=== PATIENT | male | born 1960 | race Caucasian/White ===

== ENCOUNTER 2017-07-13 04:19 | Emergency (ER) | payer MEDICAID, OTHER ==
[~2017-07-13] VITALS: Ht 170.2 cm; Wt 114.0 kg
[2017-07-13] MEDS ORDERED: SODIUM CHLORIDE 0.9% 1,000 ML IV ONE (06:43)
[2017-07-13] MEDS ORDERED: KETOROLAC 30MG/ML VIAL IV STA (06:43)
[2017-07-13 07:32] LABS: BASOPHILS % 0.5 % (0.0-2.0); EOSINOPHILS % 1.7 % (0.0-5.0); HEMATOCRIT. 40.5 % (42.0-52.0); HEMOGLOBIN. 13.6 g/dL (14.0-18.0); LYMPHOCYTES % 20.4 % (20.0-50.0); MEAN CORPUSCULAR HEMOGLOBIN 28.2 pg (28.0-32.0); MEAN CORPUSCULAR VOLUME 84.1 fL (80.0-94.0); MONOCYTES % 5.4 % (2.0-8.0); PLATELET 258 x1000/uL (130-400); RED BLOOD CELL COUNT 4.82 mill/uL (4.7-6.1); RED CELL DISTRIBUTION WIDTH 15.3 % (11.6-14.6)
[2017-07-13 07:47] LABS: CARBON DIOXIDE 30 mEq/L (21-32); CHLORIDE 103 mEq/L (98-107)
[2017-07-13 08:30] VITALS: BP 136/85
[2017-07-18] MEDS ORDERED: AMIO100T4 PO (10:50)
[2017-07-18] MEDS ORDERED: APIX5TAB PO (10:50)
[2017-07-18] MEDS ORDERED: METF10002 PO (10:50)
[2017-07-18] MEDS ORDERED: NICO-645 TD (10:50)
[2017-07-18] MEDS ORDERED: LISI40TA4 PO (10:50)
== END 2017-07-13 08:48 | disposition home or self-care (01) ==
LOC: ER 04:30
DX: B34.9 Viral infection, unspecified (principal); R05 Cough; F17.210 Nicotine dependence, cigarettes, uncomplicated
CPT/HCPCS: 36415; 71045; 80053; 85025; 87804; 93005; 96360; 99285; J1885; J7030; Z7610